=== PATIENT | male | born 1980 | race American Indian/Alaskan Native ===

== ENCOUNTER 2020-12-13 06:44 | Observation (INO) | payer MEDICAID ==
[2020-12-13] MEDS ORDERED: NITROGLYCERIN 2% OINT 1 GM TP ONE (07:09)
[2020-12-13] MEDS ORDERED: MORPHINE 4 MG/1 ML INJ IV ONE (07:09)
[2020-12-13] MEDS ORDERED: ONDANSETRON 4 MG/2 ML INJ IV ONE (07:10)
[2020-12-13] MEDS ORDERED: PANTOPRAZOLE 40 MG INJ IV ONE (07:10)
--- NOTE | 2020-12-13 07:18 | Emergency Department Report ---
ED Chest Pain HPI - General Stated Complaint: CHEST PAIN PUI?: No Time Seen by Provider: 12/13/20 07:08 Source: patient, EMS Mode of arrival: Stretcher Limitations: No Limitations - History of Present Illness Initial Comments: CC: chest pain HPI: This is a 40 yo male with hx of HTN, dyslipidemia, [place] s/p cardiac stent 06/17/2019, tobacco dependence who presents with sharp chest pain which awakened him out of sleep this morning one hour prior to arrival. 8/10 in severity. Left sided. Patient took nitroglycerin prior to arrivial without relief. EMS provided asprin and nitroglycerin. Pain is located on left side. Short. Present at rest. No sedation with eating inspiration movement or exertion. Pain feels similar to heart attack which occurred on 2018. His PCP is Dr. Ashton [facility] is located at [facility] [address] [place] There is extensive family history of cardiac disease among siblings aunts uncles and grandparents. Patient smokes cigarettes. He denies recreational drug use. MD Complaint: chest pain -: Sudden, This morning Onset: during rest, other (Awakened from sleep) Pain Location: left chest Pain Radiation: none Severity: severe Severity scale (0 -10): 8 Quality: sharp Consistency: constant Improves With: other (Minimal relief with nitroglycerin) re: denies: nausea, vomting, diaphoresis, dyspnea, sense of impending doom Other Symptoms: denies: cough, fever, syncope Treatments Prior to Arrival: aspirin, nitroglycerin - Related Data Previous Rx's Medication Instructions Recorded Last Taken Type Fluticasone [Flonase] 1 spray NS QDAY #1 bottle 05/26/18 Unknown Rx predniSONE [Deltasone] 20 mg PO DAILY #5 tablet 05/26/18 Unknown Rx Allergies Allergy/AdvReac Type Severity Reaction Status Date / Time ibuprofen [From Motrin] Allergy Nausea Verified 02/19/14 02:35 Penicillins Allergy Rash Verified 02/19/14 02:35 Heart Score - HEART Score History: Highly suspicious EKG: Non-specific Age: 45-65 Risk factors: > 3 risk factors or hx of atherosclerotic disease Troponin: < normal limit HEART Score: 6 - EKG Read Time Time EKG Completed: 07:11 EKG Read Time: 07:11 ED Review of Systems ROS: Stated complaint: CHEST PAIN Other details as noted in HPI Comment: All other systems reviewed and negative Constitutional: denies: fever, malaise Respiratory: shortness of breath. denies: cough Cardiovascular: chest pain Gastrointestinal: denies: abdominal pain, nausea, vomiting ED Past Medical Hx - Past Medical History Previous Medical History?: Yes Hx Hypertension: Yes Hx CVA: No Hx Heart Attack/AMI: Yes Hx Congestive Heart Failure: No Hx Diabetes: No Hx Deep Vein Thrombosis: No Hx Pulmonary Embolism: No Hx GERD: No Hx Liver Disease: No Hx Renal Disease: No Hx Sickle Cell Disease: No Hx Arthritis: No Hx Headaches / Migraines: No Hx Seizures: No Hx Kidney Stones: No Hx Psychiatric Treatment: No Hx Asthma: No Hx COPD: No Hx Tuberculosis: No Hx Dementia: No Hx HIV: No Additional medical history: Kidney problems - Surgical History Past Surgical History?: Yes Hx Coronary Stent: No Hx Open Heart Surgery: No Hx Pacemaker: No Hx Internal Defibrillator: No Hx Cholecystectomy: No Hx Appendectomy: No Hx Breast Surgery: No Additional Surgical History: Rt foot surgery cardiac stent - Social History Smoking Status: Current Every Day Smoker Substance Use Type: None - Medications Home Medications: Home Medications Medication Instructions Recorded Confirmed Last Taken Type Fluticasone [Flonase] 1 spray NS QDAY #1 bottle 05/26/18 Unknown Rx predniSONE [Deltasone] 20 mg PO DAILY #5 tablet 05/26/18 Unknown Rx ED Physical Exam - General Limitations: No Limitations General appearance: alert, in no apparent distress - Head Head exam: Present: atraumatic, normocephalic - Eye Eye exam: Present: normal appearance - ENT ENT exam: Present: mucous membranes moist - Neck Neck exam: Present: normal inspection, full ROM - Respiratory Respiratory exam: Present: normal lung sounds bilaterally. Absent: respiratory distress, wheezes, rales, rhonchi - Cardiovascular Cardiovascular Exam: Present: regular rate, normal rhythm, normal heart sounds. Absent: systolic murmur, diastolic murmur, rubs, gallop - GI/Abdominal GI/Abdominal exam: Present: soft, normal bowel sounds. Absent: distended, tenderness, guarding, rebound - Rectal Rectal exam: Present: deferred - Extremities Exam Extremities exam: Present: normal inspection - Back Exam Back exam: Present: normal inspection - Neurological Exam Neurological exam: Present: alert, oriented X3 - Psychiatric Psychiatric exam: Present: normal affect, normal mood - Skin Skin exam: Present: warm, dry, intact, normal color. Absent: rash ED Course Vital Signs 12/13/20 12/13/20 07:49 08:00 Pulse Rate 60 57 L Respiratory 12 Rate Blood Pressure 119/78 119/78 O2 Sat by Pulse 100 Oximetry ABDELRAHMAN score - Abdelrahman Score Age > 65: (0) No Aspirin use within the Past 7 Days: (1) Yes 3 or more CAD Risk Factors: (1) Yes 2 or more Angina events in past 24 hrs: (0) No Known CAD with more than 50% Stenosis: (1) Yes Elevated Cardiac Markers: (0) No ST Deviation Greater than 0.5mm: (0) No ABDELRAHMAN Score: 3 ED Medical Decision Making - Lab Data Result diagrams: 12/13/20 07:33 12/13/20 07:33 - EKG Data -: EKG Interpreted by Hi EKG shows normal: sinus rhythm Rate: bradycardia - EKG Data Interpretation: nonspecific ST-T wave segundo 12/13/20 07:17 EKG obtained 0 711 EKG interpreted by mt Sinus bradycardia rate 50 bpm normal axis and intervals anterior T wave inversions no ST elevation Q waves in anterior leads - Radiology Data Radiology results: report reviewed Patient Name: LIANET MEJIA Gender: Male Date of : 1980 Referring Provider: MARIELLA MOE Organization: [facility] Accession Number: [id number] Requested Date: December 13, 2020 07:08 Report Status: Final Requested Procedure: 1 Procedure Description: XR chest 1V ap Modality: XR Findings Reporting MD: Nathan Martínez Dictation Time: December 13, 2020 06:35 Hand Splitter: Not available Reproduction Technician Date: CHEST 1 VIEW 12/13/2020 7:14 AM INDICATION / CLINICAL INFORMATION: Chest Pain. COMPARISON: None available. FINDINGS: SUPPORT DEVICES: None. HEART / MEDIASTINUM: No significant abnormality. LUNGS / PLEURA: No significant pulmonary or pleural abnormality. No pneumothorax. ADDITIONAL FINDINGS: No significant additional findings. IMPRESSION: 1. No acute findings. Signer Name: Nathan Martínez MD Signed: 12/13/2020 6:35 AM Workstation Name: [id number] - Medical Decision Making Acute coronary syndrome: Heart score 6, considering multiple risk factors patient is at risk for major adverse cardiac event. However chest pain is somewhat atypical considering persistence at rest unrelenting with nitroglycerin. Pain is 4 out of 10 in spite several doses of nitroglycerin sublingual and topical. He also has received Protonix morphine. I will treat patient with Maalox and additional morphine. He appears comfortable however he states that he has persistent pain. Additional considerations GERD. D-dimer negative essentially ruling out pulmonary embolism and aortic dissection.. I consulted geomagnetician Dr. Bright who will assist with medical management And further evaluation. Patient is admitted to the hospital service in good condition - Differential Diagnosis Atypical pneumonia, pleurisy, chest wall strain, Critical care attestation.: If time is entered above; I have spent that time in minutes in the direct care of this critically ill patient, excluding procedure time. ED Disposition Clinical Impression: Acute coronary syndrome Disposition: 09 OP ADMIT IP TO THIS HOSP Is pt being admited?: Yes Does the pt Need Aspirin: No Condition: Stable
--- NOTE | 2020-12-13 07:39 | XRay Report ---
CHEST 1 VIEW 12/13/2020 7:14 AM INDICATION / CLINICAL INFORMATION: Chest Pain. COMPARISON: None available. FINDINGS: SUPPORT DEVICES: None. HEART / MEDIASTINUM: No significant abnormality. LUNGS / PLEURA: No significant pulmonary or pleural abnormality. No pneumothorax. ADDITIONAL FINDINGS: No significant additional findings. IMPRESSION: 1. No acute findings. Signer Name: Nathan Martínez MD Signed: 12/13/2020 7:35 AM Workstation Name: [id number]
[2020-12-13 07:57] LABS: Red Cell Distribution Width 13.6 % (13.2-15.2)
[2020-12-13 08:04] LABS: Eosinophils % (Auto) 3.1 % (0.0-4.3); Hemoglobin 14.2 gm/dl (11.8-15.2); Mean Corpuscular HGB Conc 35 % (32-34); Mean Corpuscular Volume 94 fl (84-94); Monocytes % (Auto) 5.9 % (0.0-7.3); Platelet Count 162 K/mm3 (140-440); Red Blood Count 4.35 M/mm3 (3.65-5.03)
[2020-12-13 08:20] LABS: BUN/Creatinine Ratio 11; Blood Urea Nitrogen 11 mg/dL (9-20); Calcium 9.3 mg/dL (8.4-10.2); Hemolysis Index 3
[2020-12-13] MEDS ORDERED: ALUM-MAG HYDROXIDE-SIMETHICONE 200-200-20MG/5ML ORAL LIQD 30 ML PO ONE (08:31)
[2020-12-13] MEDS ORDERED: NITROGLYCERIN 0.4 MG TAB SUBL SL PRN (09:22)
--- NOTE | 2020-12-13 09:22 | History and Physical Report ---
History of Present Illness Date of examination: 12/13/20 Date of admission: 12/13/20 Chief complaint: chest pain History of present illness: This is a 40 yo male with hx of HTN, dyslipidemia, [place] s/p cardiac stent 06/17/2019, tobacco dependence who presents to ER with c/o chest pain which awakened him from sleep this morning. Chest pain described as sharp 8/10 in s everity, Left sided. Patient took nitroglycerin prior to arrivial but no relief. EMS provided asprin and nitroglycerin. Pain feels similar to heart attack which occurred on 2018. Patient is being admitted for chest pain work up. Initial troponin and EKG in the ER unremarkable, CXR w/o any infiltrates. Past medical History: h/o hypertension, coronary artery disease with VA, hyperl ipidemia Past surgical History: s/p right foot surgery, cardiac stent placement with PCI Social History: Lives with family, current everyday smoker Family History: There is extensive family history of cardiac disease among siblings aunts uncles and grandparents. Review of System: Constitutional: no fever, no chills, no weight loss Ears, eyes, nose, mouth and throat: no nasal congestion, no nasal discharge, no sinus pressure, no vision change, no red eye. Neck: No neck pain or rigidity. Cardiovascular: + chest pain, no orthopnea, no palpitations, no leg swelling Respiratory: No shortness of breath, no cough, no congestion, no wheezing Gastrointestinal: no abdominal pain, no nausea, no vomiting Genitourinary : no dysuria, no hematuria Musculoskeletal: no joint swelling or muscle ache Integumentary: no rash, no pruritis Neurological: no parathesias, no numbness, no tingling Endocrine: no cold or heat intolerance, no polyuria or polydipsia Hematologic/Lymphatic: no easy bruising, no easy bleeding, no gland swelling Allergic/Immunologic: no urticaria, no angioedema. Medications and Allergies Allergies Allergy/AdvReac Type Severity Reaction Status Date / Time ibuprofen [From Motrin] Allergy Nausea Verified 02/19/14 02:35 Penicillins Allergy Rash Verified 02/19/14 02:35 Home Medications Medication Instructions Recorded Confirmed Last Taken Type Fluticasone [Flonase] 1 spray NS QDAY #1 bottle 05/26/18 12/14/20 1 Day Ago Rx ~12/13/20 Aspirin [Aspirin BABY CHEW TAB] 81 mg PO QDAY #30 tab.chew 12/14/20 Unknown Rx AtorvaSTATin [Lipitor] 40 mg PO QHS #30 tablet 12/14/20 Unknown Rx Metoprolol [Lopressor TAB] 50 mg PO BID #60 12/14/20 Unknown Rx lisinopriL [Lisinopril] 10 mg PO DAILY #30 12/14/20 Unknown Rx Exam - Physical Exam Narrative exam: GENERAL: well-developed and well-nourished male lying on bed appeared to be in no discomfort. HEENT: Normocephalic. Atraumatic. No conjunctival congestion or icterus. Patient has moist mucous membranes. NECK: Supple. Trachea midline. CHEST/LUNGS: Clear to auscultated bilaterally, breathing nonlabored. No wheezes crackles or rhonchi. HEART/CARDIOVASCULAR: Regular in rate and rhythm. S1 and S2 positive. ABDOMEN: Abdomen is soft, nontender. Patient has normal bowel sounds. SKIN: There is no rash. Warm and dry. NEURO: No focal motor deficit. Follows command. MUSCULOSKELETAL: No joint effusion or tenderness. EXTRIMITY: No edema, no cyanosis or clubbing. PSYCH: Cooperative. - Constitutional Vitals: Temp Pulse Resp BP Pulse Ox 57 L 12 119/78 100 12/13/20 08:00 12/13/20 08:00 12/13/20 08:00 12/13/20 08:00 HEART Score - HEART Score EKG: Non-specific Age: 45-65 Risk factors: > 3 risk factors or hx of atherosclerotic disease Troponin: Troponin T < 0.010 ng/mL (0.00-0.029) 12/13/20 07:33 Troponin: < normal limit Results - Labs CBC & Chem 7: 12/14/20 04:56 12/14/20 04:56 Labs: Abnormal lab results 12/13/20 12/13/20 Range/Units 07:33 07:33 MCH 33 H (28-32) pg MCHC 35 H (32-34) % Potassium 3.4 L (3.6-5.0) mmol/L - Imaging and Cardiology EKG: report reviewed Chest x-ray: report reviewed Assessment and Plan Acute chest pain -- will admit to telemetry bed - monitor with serial CE and EKG - will place on Aspirin, statin - as needed SL NTG and iv morphin for pain - Monitor BP, add betablocker and ACEI if BP tolerates - order 2D echo and stress test in the am - cardiac diet now, cardiac diet Hypertension, resume home meds History of coronary artery disease, continue aspirin statin and follow cardiology recommendation -We will also get medical record from [facility] - provide DVT Px with joceline
--- NOTE | 2020-12-13 10:39 | Consultation ---
History of Present Illness Consult date: 12/13/20 Consult reason: chest pain History of present illness: Patient is a 40-year-old man who presented to the hospital emergency room with chest pain. He describes left-sided chest pain which is positional, pleuritic and exacerbated by palpation over the left chest wall. During my examination, light to moderate palpation over the left chest wall caused reproducible pain. There was no shortness of breath, no palpitations, no lower extremity edema. His pain began this morning when he woke up from sleep. Notably, he is very physically active and reports no exercise intolerance or chest pain with exercise over the last several weeks. He reports a history of coronary artery disease, and states that a year and a half ago he underwent coronary stent placement at [facility]. However, he is currently on monotherapy with aspirin, and unable to articulate details of any dual oral antiplatelet therapy following his reported coronary procedure in May 2019. The medical records from [facility] are not currently available for review. Comorbidities include chronic tobacco abuse, patient admits to continued tobacco use. Work-up today EKG is a sinus bradycardia with limb lead malplacement on the EKG, otherwise benign EKG. In comparison with previous EKG in the chart from 2015, there are no changes. Laboratory exam reveals normal troponin levels. A CT angiogram of the chest was negative for pulmonary embolism. Current home medications include aspirin, atorvastatin, metoprolol, and sublingual nitroglycerin as needed. Past History Past Medical History: CAD, other (Tobacco abuse) Medications and Allergies Allergies Allergy/AdvReac Type Severity Reaction Status Date / Time ibuprofen [From Motrin] Allergy Nausea Verified 02/19/14 02:35 Penicillins Allergy Rash Verified 02/19/14 02:35 Home Medications Medication Instructions Recorded Confirmed Last Taken Type Fluticasone [Flonase] 1 spray NS QDAY #1 bottle 05/26/18 Unknown Rx predniSONE [Deltasone] 20 mg PO DAILY #5 tablet 05/26/18 Unknown Rx Active Meds: Active Medications Aspirin (Aspirin Ec 325 Mg Tab) 325 mg PO QDAY FRANCO Atorvastatin Calcium (Atorvastatin 40 Mg Tab) 80 mg PO QHS FRANCO Fluticasone Propionate (Fluticasone Propionate Nasal [place] 16 Gm) 50 mcg NS QDAY FRANCO Nitroglycerin (Nitroglycerin 0.4 Mg Tab Subl) 0.4 mg SL .Q5MIN PRN PRN Reason: Chest Pain Review of Systems Cardiovascular: chest pain, no orthopnea, no palpitations, no rapid/irregular heart beat, no edema, no syncope, no lightheadedness, no shortness of breath Physical Examination Vital Signs Pulse BP 60 119/78 12/13/20 07:49 12/13/20 07:49 General appearance: no acute distress HEENT: Positive: PERRL Neck: Positive: neck supple Cardiac: Positive: Reg Rate and Rhythm Lungs: Positive: Decreased Breath Sounds Neuro: Positive: Grossly Intact Abdomen: Positive: Soft Male genitourinary: Positive: deferred Skin: Positive: Clear Extremities: Absent: edema Results 12/13/20 07:33 12/13/20 07:33 CBC 12/13/20 Range/Units 07:33 WBC 5.5 (4.5-11.0) K/mm3 RBC 4.35 (3.65-5.03) M/mm3 Hgb 14.2 (11.8-15.2) gm/dl Hct 41.0 (35.5-45.6) % Plt Count 162 (140-440) K/mm3 Comprehensive Metabolic Panel 12/13/20 Range/Units 07:33 Sodium 138 (137-145) mmol/L Potassium 3.4 L (3.6-5.0) mmol/L Chloride 99.3 (98-107) mmol/L Carbon Dioxide 24 (22-30) mmol/L BUN 11 (9-20) mg/dL Creatinine 1.0 (0.8-1.3) mg/dL Glucose 96 (75-100) mg/dL Calcium 9.3 (8.4-10.2) mg/dL EKG interpretations - Telemetry EKG Rhythm: Sinus Bradycardia Assessment and Plan - Patient Problems (1) Chest pain, atypical Current Visit: Yes Status: Acute Plan to address problem: Patient's chest pain is atypical, ECG is benign and troponin level is normal. We will treat his musculoskeletal chest pain with intravenous Toradol, and continue AL rule out protocol. Due to underlying history of coronary artery disease and continued tobacco use, we will contemplate ischemic cardiac work-up prior to discharge.
[2020-12-13 11:21] LABS: Platelet Estimate Consistent w Auto; RBC Morphology Normal; Total Cells Counted 100
[2020-12-13] MEDS: KETOROLAC 30 MG/1 ML INJ IV PRN ×2 (11:43→18:51)
[2020-12-13] MEDS: ASPIRIN EC 325 MG TAB PO SCH (11:48)
[2020-12-13] MEDS: FLUTICASONE PROPIONATE NASAL SPRAY 16 GM NS SCH (13:46)
[2020-12-14] MEDS: KETOROLAC 30 MG/1 ML INJ IV PRN (04:19)
[2020-12-14 05:32] LABS: Hematocrit 38.8 % (35.5-45.6); Hemoglobin 13.5 gm/dl (11.8-15.2); Mean Corpuscular HGB Conc 35 % (32-34); Mean Corpuscular Volume 94 fl (84-94); Platelet Count 149 K/mm3 (140-440); Red Blood Count 4.12 M/mm3 (3.65-5.03); Red Cell Distribution Width 13.7 % (13.2-15.2)
[2020-12-14 05:53] LABS: BUN/Creatinine Ratio 14; Blood Urea Nitrogen 17 mg/dL (9-20); Calcium 8.6 mg/dL (8.4-10.2); Hemolysis Index 6
[2020-12-14] MEDS ORDERED: REGADENOSON 0.4 MG/5 ML INJ IV ONE (08:15)
[2020-12-14 08:51] LABS: Large Platelets Few; Platelet Estimate Consistent w Auto; RBC Morphology Normal; Total Cells Counted 100
[2020-12-14 09:43] VITALS: BP 129/87
[2020-12-14] MEDS: ASPIRIN EC 325 MG TAB PO SCH (10:53)
[2020-12-14] MEDS: FLUTICASONE PROPIONATE NASAL SPRAY 16 GM NS SCH (10:53)
--- NOTE | 2020-12-14 11:25 | Discharge Summary ---
Providers - Providers Date of Admission: 12/13/20 08:36 Date of discharge: 12/14/20 Attending physician: CAROLINA MENDEZ 12/13/20 Consult to Cardiac Rehabilitation [CONS] Routine Reason For Exam: Phase 1 12/13/20 09:22 Consult to Cardiology [CONS] Routine Consulting Provider: SELAM RICCI Reason For Exam: chest pain 12/13/20 09:34 Consult to Physician [CONS] Stat Comment: Consulting Provider: SELAM RICCI Physician Instructions: Reason For Exam: acs Primary care physician: SENIOR PARTNER Hospitalization Condition: Stable Hospital course: 40-year-old with a history of IN in the past presented to the ER with complaints of left-sided chest pain. He describes left-sided chest pain which is positional, pleuritic and exacerbated by palpation over the left chest wall. Patient was evaluated in the ER, initial cardiac enzyme and EKG was unremarkable, chest x-ray showed no infiltrates. Patient was admitted, cardiology was consulted and underwent myocardial stress test which was normal. Patient was then discharged home in stable condition with outpatient follow-up. Patient advised to follow up with his primary lumber press operator at [facility]. Disposition: DC- TO HOME OR SELFCARE Final Discharge Diagnosis (Prints w/discharge instructions): Atypical chest pain, musculoskeletal. hypokalemia, repleted Time spent for discharge: 36 minutes Core Measure Documentation - Palliative Care Palliative Care/ Comfort Measures: Not Applicable - Core Measures Any of the following diagnoses?: history only Exam - Physical Exam Narrative exam: GENERAL: well-developed and well-nourished male lying on bed appeared to be in no discomfort. HEENT: Normocephalic. Atraumatic. No conjunctival congestion or icterus. Patient has moist mucous membranes. NECK: Supple. Trachea midline. CHEST/LUNGS: Clear to auscultated bilaterally, breathing nonlabored. No wheezes crackles or rhonchi. HEART/CARDIOVASCULAR: Regular in rate and rhythm. S1 and S2 positive. ABDOMEN: Abdomen is soft, nontender. Patient has normal bowel sounds. SKIN: There is no rash. Warm and dry. NEURO: No focal motor deficit. Follows command. MUSCULOSKELETAL: No joint effusion or tenderness. EXTRIMITY: No edema, no cyanosis or clubbing. PSYCH: Cooperative. - Constitutional Vitals: Temp Pulse Resp BP Pulse Ox 97.8 F 79 18 129/87 98 12/14/20 04:06 12/14/20 04:06 12/14/20 04:06 12/14/20 09:10 12/14/20 04:06 Plan Activity: advance as tolerated Weight Bearing Status: Weight Bear as Tolerated Diet: low fat, low salt Additional Instructions: f/u with your lumber press operator in one week Follow up with: PRIMARY CARE, [Primary Care Provider] - 7 Days Prescriptions: AtorvaSTATin [Lipitor] 40 mg PO QHS #30 tablet Aspirin [Aspirin BABY CHEW TAB] 81 mg PO QDAY #30 tab.chew lisinopriL [Lisinopril] 10 mg PO DAILY #30 Metoprolol [Lopressor TAB] 50 mg PO BID #60
--- NOTE | 2020-12-14 12:03 | Progress Note ---
Assessment and Plan - Patient Problems (1) Chest pain, atypical Current Visit: Yes Status: Acute Plan to address problem: Chest pain is atypical Normal stress thallium test today. ECG is benign and troponin level is normal. Advised smoking cessation. Continue medical therapy for coronary artery disease. Okay for discharge home. Patient advised to follow up with his primary real estate acquisition analyst at [facility]. Subjective Date of service: 12/14/20 Interval history: Patient underwent a stress thallium test today that was negative for ischemia. Objective Vital Signs Temp Pulse Resp BP Pulse Ox 12/14/20 09:10 129/87 12/14/20 09:09 150/81 12/14/20 09:06 144/80 12/14/20 09:05 149/84 12/14/20 09:03 164/91 12/14/20 08:26 120/77 12/14/20 04:06 97.8 F 79 18 124/67 98 12/13/20 22:24 98 12/13/20 21:42 98.3 F 51 L 16 109/72 96 12/13/20 19:12 98.1 F 53 L 16 118/71 97 12/13/20 15:15 97.9 F 56 L 18 116/69 96 12/13/20 13:46 60 - Physical Examination General: No Apparent Distress HEENT: Positive: PERRL Neck: Positive: neck supple Cardiac: Positive: Reg Rate and Rhythm Neuro: Positive: Grossly Intact Abdomen: Positive: Soft Skin: Positive: Clear Extremities: Absent: edema - Labs and Meds CBC 12/14/20 Range/Units 04:56 WBC 5.2 (4.5-11.0) K/mm3 RBC 4.12 (3.65-5.03) M/mm3 Hgb 13.5 (11.8-15.2) gm/dl Hct 38.8 (35.5-45.6) % Plt Count 149 (140-440) K/mm3 Comprehensive Metabolic Panel 12/14/20 Range/Units 04:56 Sodium 134 L (137-145) mmol/L Potassium 3.7 (3.6-5.0) mmol/L Chloride 98.3 (98-107) mmol/L Carbon Dioxide 27 (22-30) mmol/L BUN 17 (9-20) mg/dL Creatinine 1.2 (0.8-1.3) mg/dL Glucose 97 (75-100) mg/dL Calcium 8.6 (8.4-10.2) mg/dL
[2020-12-14] MEDS ORDERED: KETOROLAC 30 MG/1 ML INJ ONE (12:27)
--- NOTE | 2020-12-14 19:21 | Electrocardiograph Report ---
[facility] Test Date: 2020-12-13 Test Time: 07:11:47 Pat Name: LIANET MEJIA Department: Room: A481 1 Gender: M Commercial Technician: GEMA CARTER : 1980 Requested By: MARIELLA MOE Order Number: [id number] Reading MD: Gloria Bright Measurements Intervals [place] Rate: 53 P: 144 VA: 167 QRS: 123 QRSD: 85 T: 129 QT: 462 QTc: 433 Interpretive Statements Right and left arm electrode reversal, interpretation assumes no reversal Sinus bradycardia Anterolateral infarct, old No previous ECG available for comparison Electronically Signed On 12-14-2020 19:21:28 EDT by Gloria Bright
[2020-12-14] MEDS ORDERED: ENOXAPARIN 40 MG/0.4 ML INJ SUB-Q SCH (22:00)
--- NOTE | 2020-12-15 14:08 | Electrocardiograph Report ---
[facility] Test Date: 2020-12-14 Test Time: 10:49:16 Pat Name: LIANET MEJIA Department: Room: A481 1 Gender: M [place] [employer] Nibs Inspector: KELLY : 1980 Requested By: CAROLINA MENDEZ Order Number: [id number] Reading MD: Gloria Bright Measurements Intervals [place] Rate: 51 P: 74 CT: 161 QRS: 58 QRSD: 91 T: 84 QT: 446 QTc: 412 Interpretive Statements Sinus rhythm Nonspecific T abnormalities, lateral leads Compared to ECG 12/13/2020 07:11:47 No significant change Electronically Signed On 12-15-2020 14:08:13 EDT by Gloria Bright
--- NOTE | 2020-12-23 13:04 | Nuclear Medicine Report ---
APPROVED REPORT Exam: Nuclear Stress Test Indication: Chest pain BMI: 0 Stress Test Details HR Resting HR: 51 bpm Max HR Achieved: 136 bpm Max Heart Rate (APMHR): 179 bpm Target HR (85% APMHR): 152 bpm % of APMHR: 75 Recovery HR: 67 bpm HR response to stress: Normal HR response to stress BP Resting BP: 120/77 mmHg Max BP: 165/92 mmHg Recovery BP: 129/87 mmHg BP response to stress: Normal blood pressure response to stress. ECG Resting ECG: Sinus Bradycardia Stress ECG: Sinus Tachycardia ST Change: None Arrhythmia: None Recovery ECG: Sinus Rhythm Recovery ST Change: None Recovery Arrhythmia: None Clinical Reason for Termination: Fatigue Stress Symptoms: None Exercise duration: 10 min 15 sec Exercise capacity: 11.0 METs Overall Exercise Capacity for Age: Good Stress ECG Conclusion No chest pain and no ST changes with exercise to 10 minutes of the Ford protocol. Myocardial perfusion images are pending for final interpretation of the test. NM EXAM: Myocardial Perfusion REST/STRESS Imaging Protocol: Rest Tc-99m/Stress Tc-99m 1 day Resting Data Rest SPECT myocardial perfusion imaging was performed in supine position 45 minutes following the intravenous injection of 10 mCi of Tc-99m Myoview. Time of rest injection: 0645 Exercise Stress At peak stress, the patient was injected intravenously with 10mCi of Tc-99m Myoview. Time of stress injection: 9:00 Gated Stress SPECT was performed 45 minutes after stress injection. Study Data TID = 1.05. Perfusion Nuclear Conclusion ECG Findings: negative for ischemia Clinical Findings: negative for ischemia Nuclear Findings: negative for ischemia Exercise Capacity: normal Left Ventricular Function: normal Risk Study: low Normal rest and stress myocardial perfusion images, normal left ventricular systolic function, ejection fraction 61%. Normal exercise thallium stress test. Conclusion No chest pain and no ST changes with exercise to 10 minutes of the Ford protocol. Myocardial perfusion images are pending for final interpretation of the test.
== END 2020-12-14 13:20 | disposition home or self-care (01) ==
LOC: ED 06:44 → 4A 08:36
PROVIDERS: ADMIT Internal Medicine; ATTEND Internal Medicine
DX: I24.9 Acute ischemic heart disease, unspecified (principal); R07.89 Other chest pain; I10 Essential (primary) hypertension; I25.10 Atherosclerotic heart disease of native coronary artery without angina pectoris; I25.2 Old myocardial infarction; E78.5 Hyperlipidemia, unspecified; F17.200 Nicotine dependence, unspecified, uncomplicated; Z79.899 Other long term (current) drug therapy; Z79.82 Long term (current) use of aspirin; Z98.890 Other specified postprocedural states; Z95.1 Presence of aortocoronary bypass graft
CPT/HCPCS: 36415; 71045; 78452; 80048; 84484; 85025; 85379; 93005; 93017; 93306; 96374; 96375; 96376; 99285; A9270; A9502; C9113; G0378; J1885; J2270; J2405; 85007

== ENCOUNTER 2022-02-20 09:25 | Emergency (ER) | payer MEDICAID ==
[2022-02-20 10:14] VITALS: BP 102/59
== END 2022-02-20 10:10 | disposition left against medical advice (07) ==
LOC: ED 09:25
DX: R11.2 Nausea with vomiting, unspecified (principal); R19.7 Diarrhea, unspecified; Z53.21 Procedure and treatment not carried out due to patient leaving prior to being seen by health care provider

== ENCOUNTER 2022-03-06 17:54 | Observation (INO) | payer MEDICAID ==
--- NOTE | 2022-03-06 19:16 | XRay Report ---
CHEST 2 VIEWS INDICATION: chest pain. COMPARISON: 12/13/2020. FINDINGS: Support devices: None. Heart: Within normal limits. Lungs/Pleura: No acute air space or interstitial disease. No significant pleural effusion. IMPRESSION: No acute findings. Signer Name: Sami Gil MD Signed: 03/06/2022 7:12 PM Workstation Name: [id number]
[2022-03-06 20:30] LABS: Basophils % (Auto) 0.7 % (0.0-1.8); Eosinophils # (Auto) 0.2 K/mm3 (0.0-0.4); Eosinophils % (Auto) 2.7 % (0.0-4.3); Hematocrit 39.4 % (35.5-45.6); Mean Corpuscular HGB Conc 36 % (32-34); Mean Corpuscular Volume 97 fl (84-94); Monocytes # (Auto) 0.3 K/mm3 (0.0-0.8); Monocytes % (Auto) 5.5 % (0.0-7.3); Platelet Count 173 K/mm3 (140-440); Red Blood Count 4.04 M/mm3 (3.65-5.03); Red Cell Distribution Width 14.2 % (13.2-15.2)
[2022-03-06 20:52] LABS: Alanine Aminotransferase 6 units/L (7-56); Albumin 4.1 g/dL (3.9-5); BUN/Creatinine Ratio 5; Blood Urea Nitrogen 7 mg/dL (9-20); Calcium 8.8 mg/dL (8.4-10.2); Hemolysis Index 5
[2022-03-07] MEDS ORDERED: hydrALAZINE 20 MG/1 ML INJ IV STA (04:30)
[2022-03-07] MEDS ORDERED: diphenhydrAMINE 50 MG/ML VIAL IV ONE (04:30)
[2022-03-07] MEDS ORDERED: PANTOPRAZOLE 40 MG INJ IV ONE (04:30)
[2022-03-07] MEDS ORDERED: NITROGLYCERIN 0.4 MG TAB SUBL SL PRN (04:30)
[2022-03-07] MEDS ORDERED: METOCLOPRAMIDE 10 MG/2 ML INJ IV ONE (04:30)
--- NOTE | 2022-03-07 04:36 | Emergency Department Report ---
ED General Adult HPI - General Chief complaint: High BP Stated complaint: HIGH BLOOD PRESSURE, DIZZY Time Seen by Provider: 03/07/22 04:29 Source: patient, family, RN notes reviewed, old records reviewed Mode of arrival: Ambulatory Limitations: No Limitations - History of Present Illness Initial comments: This is a pleasant and cooperative 41-year-old gentleman, with a history of CAD, stent, hypertension, high cholesterol, and tobacco use. He presents to the ER today with a complaint of central and left-sided chest pain, that radiates to the back and neck. This is associated with nausea, vomiting, headache, dizziness and lightheadedness and near syncope. He also reports that he felt like he was going to pass out while urinating. He denies travel, surgery, immobilization, DVT and pulmonary embolism risk factors. He denies diaphoresis. No complaint of hematemesis or bright red blood per rectum. His dizziness and lightheadedness are now resolved. -: Sudden Location: chest Radiation: back, neck Severity scale (0 -10): 3 Quality: aching Consistency: constant Improves with: rest Worsens with: other (Lightheadedness and near syncope worsened when attempting to urine) - Related Data Previous Rx's Medication Instructions Recorded Last Taken Type Fluticasone [Flonase] 1 spray NS QDAY #1 bottle 05/26/18 1 Day Ago Rx ~12/13/20 Aspirin [Aspirin BABY CHEW TAB] 81 mg PO QDAY #30 tab.chew 12/14/20 Unknown Rx AtorvaSTATin [Lipitor] 40 mg PO QHS #30 tablet 12/14/20 Unknown Rx Metoprolol [Lopressor TAB] 50 mg PO BID #60 12/14/20 Unknown Rx lisinopriL [Lisinopril] 10 mg PO DAILY #30 12/14/20 Unknown Rx Allergies Allergy/AdvReac Type Severity Reaction Status Date / Time ibuprofen [From Motrin] Allergy Nausea Verified 02/20/22 10:14 Penicillins Allergy Rash Verified 02/20/22 10:14 ED Review of Systems ROS: Stated complaint: HIGH BLOOD PRESSURE, DIZZY Other details as noted in HPI Constitutional: denies: fever Eyes: denies: eye discharge ENT: denies: epistaxis Respiratory: shortness of breath. denies: cough Cardiovascular: chest pain, syncope Gastrointestinal: nausea. denies: hematemesis, melena, hematochezia Neurological: weakness Psychiatric: anxiety Hematological/Lymphatic: denies: easy bleeding ED Past Medical Hx - Past Medical History Hx Hypertension: Yes Hx CVA: No Hx Heart Attack/AMI: Yes Hx Congestive Heart Failure: No Hx Diabetes: No Hx Deep Vein Thrombosis: No Hx Pulmonary Embolism: No Hx GERD: No Hx Liver Disease: No Hx Renal Disease: No Hx Sickle Cell Disease: No Hx Arthritis: No Hx Headaches / Migraines: No Hx Seizures: No Hx Kidney Stones: No Hx Psychiatric Treatment: No Hx Asthma: No Hx COPD: No Hx Tuberculosis: No Hx Dementia: No Hx HIV: No Additional medical history: Kidney problems - Surgical History Hx Coronary Stent: No Hx Open Heart Surgery: No Hx Pacemaker: No Hx Internal Defibrillator: No Hx Cholecystectomy: No Hx Appendectomy: No Hx Breast Surgery: No Additional Surgical History: Rt foot surgery cardiac stent - Social History Smoking Status: Current Every Day Smoker - Medications Home Medications: Home Medications Medication Instructions Recorded Confirmed Last Taken Type Fluticasone [Flonase] 1 spray NS QDAY #1 bottle 05/26/18 12/14/20 1 Day Ago Rx ~12/13/20 Aspirin [Aspirin BABY CHEW TAB] 81 mg PO QDAY #30 tab.chew 12/14/20 Unknown Rx AtorvaSTATin [Lipitor] 40 mg PO QHS #30 tablet 12/14/20 Unknown Rx Metoprolol [Lopressor TAB] 50 mg PO BID #60 12/14/20 Unknown Rx lisinopriL [Lisinopril] 10 mg PO DAILY #30 12/14/20 Unknown Rx ED Physical Exam - General Limitations: No Limitations General appearance: alert, in no apparent distress - Head Head exam: Present: atraumatic, normocephalic - Eye Eye exam: Present: normal appearance, EOMI. Absent: nystagmus - ENT ENT exam: Present: normal exam, normal orophraynx, mucous membranes moist, normal external ear exam - Neck Neck exam: Present: normal inspection, full ROM. Absent: tenderness, meningis mus - Respiratory Respiratory exam: Present: normal lung sounds bilaterally. Absent: respiratory distress, wheezes, rales, rhonchi, stridor - Cardiovascular Cardiovascular Exam: Present: normal rhythm, bradycardia, normal heart sounds. Absent: tachycardia, irregular rhythm, systolic murmur, diastolic murmur, rubs, gallop - GI/Abdominal GI/Abdominal exam: Present: soft. Absent: distended, tenderness, guarding, rebound, rigid, pulsatile mass - Rectal Rectal exam: Present: deferred - Extremities Exam Extremities exam: Present: normal inspection, full ROM, other (2+ pulses noted in the bilateral upper and lower extremities. There is no palpable cord. negative Homans sign. Muscular compartments are soft. The pelvis is stable.). Absent: pedal edema, calf tenderness - Back Exam Back exam: Present: normal inspection. Absent: tenderness, CVA tenderness (R), CVA tenderness (L), paraspinal tenderness, vertebral tenderness - Neurological Exam Neurological exam: Present: alert, oriented X3, normal gait, other (No facial droop. Tongue midline. Extraocular movements intact bilaterally. Facial sensation intact to light touch in V1, V2, V3 distribution bilaterally. 5 and a 5 strength in 4 extremities. Sensation intact to light touch in 4 extremities.). Absent: motor sensory deficit - Psychiatric Psychiatric exam: Present: anxious - Skin Skin exam: Present: warm, dry, intact, normal color. Absent: rash ED Course Vital Signs 03/06/22 03/06/22 03/07/22 18:03 23:10 03:53 Temperature 98.2 F 98.3 F 98.1 F Pulse Rate 51 L 47 L 47 L Respiratory 16 18 18 Rate Blood Pressure 187/111 171/103 Blood Pressure 192/115 [Left] O2 Sat by Pulse 100 100 100 Oximetry - Reevaluation(s) Reevaluation #1: 03/07/22 04:35 Differential diagnosis, including but not limited to: GERD, gastritis, hiatal hernia, pneumonia, costochondritis, reflux, acute coronary syndrome, orthostasis, vagal event, structural cardiac disease, hypertensive urgency, migraine headache, tension headache, cluster headache Assessment and plan: 41-year-old gentleman, who is moderate risk for major adverse cardiac event as per heart score, with reported history of presumed GERD/gastritis, with epigastric pain, nausea, rumbling and gurgling, with a left-sided and central chest pain that radiates to the back and neck, also with associated lightheadedness and near syncope, while attempting to urinate. He is not currently tachycardic, tachypneic or hypoxic, he denies DVT and pulmonary embolism risk factors, he is low risk by Wells criteria for pulmonary embolism, and he is PERC negative. The patient has equal pulses in the upper and lower extremities, no pulsatile abdominal mass, and unremarkable x-ray of the chest. Acute aortic disease is quite unlikely. He is ambulatory with a steady gait, with a GCS of 15, and no meningeal signs. Bradycardia chronic, and blood pressure slightly elevated. We will treat his symptoms with nitro, Protonix, and hydralazine. We will obtain noncontrast CT scan of the brain. Recommend admission to the medical service for acute chest pain, and hypertensive urgency. Discussed this with the patient. He is agreeable to the plan of care. 03/07/22 04:56 EKG #2 was interpreted at 4:48 AM. It is unchanged from prior EKG. Is not a STEMI. 03/07/22 05:26 CT scan brain negative for acute findings. Patient feels improved. Dr Laurie Farias to admit to [facility] ED Medical Decision Making - Lab Data Result diagrams: 03/06/22 19:48 03/06/22 19:48 Vital Signs 03/06/22 03/06/22 03/07/22 18:03 23:10 03:53 Temperature 98.2 F 98.3 F 98.1 F Pulse Rate 51 L 47 L 47 L Respiratory 16 18 18 Rate Blood Pressure 187/111 171/103 Blood Pressure 192/115 [Left] O2 Sat by Pulse 100 100 100 Oximetry Lab Results 03/06/22 03/06/22 Range/Units 19:48 19:48 WBC 5.7 (4.5-11.0) K/mm3 RBC 4.04 (3.65-5.03) M/mm3 Hgb 14.0 (11.8-15.2) gm/dl Hct 39.4 (35.5-45.6) % MCV 97 H (84-94) fl MCH 35 H (28-32) pg MCHC 36 H (32-34) % RDW 14.2 (13.2-15.2) % Plt Count 173 (140-440) K/mm3 Lymph % (Auto) 53.0 H (13.4-35.0) % Burke % (Auto) 5.5 (0.0-7.3) % Eos % (Auto) 2.7 (0.0-4.3) % Baso % (Auto) 0.7 (0.0-1.8) % Lymph # (Auto) 3.0 (1.2-5.4) K/mm3 Burke # (Auto) 0.3 (0.0-0.8) K/mm3 Eos # (Auto) 0.2 (0.0-0.4) K/mm3 Baso # (Auto) 0.0 (0.0-0.1) K/mm3 Seg Neutrophils % 38.1 L (40.0-70.0) % Seg Neutrophils # 2.2 (1.8-7.7) K/mm3 Sodium 141 (137-145) mmol/L Potassium 4.4 (3.6-5.0) mmol/L Chloride 105.9 (98-107) mmol/L Carbon Dioxide 21 L (22-30) mmol/L Anion Gap 19 mmol/L BUN 7 L (9-20) mg/dL Creatinine 1.4 H (0.8-1.3) mg/dL Estimated GFR > 60 ml/min BUN/Creatinine Ratio 5 % Glucose 88 (75-100) mg/dL Calcium 8.8 (8.4-10.2) mg/dL Total Bilirubin 0.30 (0.1-1.2) mg/dL AST 14 (5-40) units/L ALT 6 L (7-56) units/L Alkaline Phosphatase 44 (35-129) units/L Troponin T < 0.010 (0.00-0.029) ng/mL Total Protein 6.4 (6.3-8.2) g/dL Albumin 4.1 (3.9-5) g/dL Albumin/Globulin Ratio 1.8 % - EKG Data -: EKG Interpreted by Ca Rate: normal, bradycardia - EKG Data 03/07/22 04:32 The EKG is interpreted at 18: 22 Sinus bradycardia, with a rate of 48 bpm. Normal axis, normal P wave axis, poor R wave progression, QTC 4 5 7 ms. Abnormal EKG. Not a STEMI - Radiology Data Radiology results: pending, report reviewed, image reviewed CHEST 2 VIEWS INDICATION: chest pain. COMPARISON: 12/13/2020. FINDINGS: Support devices: None. Heart: Within normal limits. Lungs/Pleura: No acute air space or interstitial disease. No significant pleural effusion. IMPRESSION: No acute findings. Signer Name: Sami Gil MD Signed: 03/06/2022 6:12 PM Workstation Name: [id number] CT HEAD WITHOUT CONTRAST INDICATION / CLINICAL INFORMATION: Headache with dizziness and hypertension. TECHNIQUE: CT head was performed without admin istration of intravenous contrast. All CT scans at this location are performed using CT dose reduction for ALARA by means of automated exposure control. COMPARISON: CT head 02/19/2013. FINDINGS: CEREBRAL HEMISPHERES: There is no evidence of large territorial infarction or significant abnormality of frod- white matter differentiation. Ventricles within normal limits. No midline shift. Basal cisterns patent. HEMORRHAGE: None. CEREBELLUM / BRAINSTEM: No significant abnormality. ORBITS: No significant abnormality. SOFT TISSUES: No significant abnormality. SKULL: No significant abnormality. PARANASAL SINUSES / MASTOID AIR CELLS: Normal as visualized. ADDITIONAL FINDINGS: None. IMPRESSION: 1. No acute intracranial abnormality. Signer Name: Ramiro Ta II, MD Signed: 03/07/2022 3:53 AM Workstation Name: [id number] Critical care attestation.: If time is entered above; I have spent that time in minutes in the direct care of this critically ill patient, excluding procedure time. ED Disposition Clinical Impression: Acute chest pain, Hypertensive urgency, Headache, Near syncope Disposition: 09 ADMITTED INPATIENT Is pt being admited?: Yes Condition: Good Instructions: Chest Pain (ED) Heart Score - HEART Score History: Moderately suspicious EKG: Non-specific Age: < 45 Risk factors: > 3 risk factors or hx of atherosclerotic disease Troponin: < normal limit HEART Score: 4 - EKG Read Time Time EKG Completed: 18:22 EKG Read Time: 18:30 - Critical Actions Critical Actions: 4-6 pts:12-16.6% risk of adverse cardiac event. Should be admitted
--- NOTE | 2022-03-07 04:58 | Cat Scan Report ---
CT HEAD WITHOUT CONTRAST INDICATION / CLINICAL INFORMATION: Headache with dizziness and hypertension. TECHNIQUE: CT head was performed without administration of intravenous contrast. All CT scans at this location are performed using CT dose reduction for ALARA by means of automated exposure control. COMPARISON: CT head 02/19/2013. FINDINGS: CEREBRAL HEMISPHERES: There is no evidence of large territorial infarction or significant abnormality of ford-white matter differentiation. Ventricles within normal limits. No midline shift. Basal ciste rns patent. HEMORRHAGE: None. CEREBELLUM / BRAINSTEM: No significant abnormality. ORBITS: No significant abnormality. SOFT TISSUES: No significant abnormality. SKULL: No significant abnormality. PARANASAL SINUSES / MASTOID AIR CELLS: Normal as visualized. ADDITIONAL FINDINGS: None. IMPRESSION: 1. No acute intracranial abnormality. Signer Name: Ramiro Ta II, MD Signed: 03/07/2022 4:53 AM Workstation Name: [id number]
[2022-03-07] MEDS ORDERED: ONDANSETRON 4 MG/2 ML INJ IV PRN (05:27)
[2022-03-07] MEDS ORDERED: NALOXONE 0.4 MG/1 ML INJ IV PRN (05:27)
[2022-03-07] MEDS ORDERED: MORPHINE 2 MG/1 ML INJ IV PRN (05:27)
[2022-03-07] MEDS ORDERED: ACETAMINOPHEN 325 MG TAB PO PRN (05:27)
[2022-03-07] MEDS ORDERED: ASPIRIN 81 MG TAB CHEW PO ONE (05:33)
[2022-03-07] MEDS ORDERED: traMADol 50 MG TAB PO PRN (05:35)
[2022-03-07] MEDS ORDERED: MORPHINE 4 MG/1 ML INJ IV PRN (05:35)
[2022-03-07 05:39] LABS: INR 0.87 (0.87-1.13)
--- NOTE | 2022-03-07 05:47 | History and Physical Report ---
History of Present Illness Date of examination: 03/07/22 Date of admission: 03/07/2022 Chief complaint: Chest pain History of present illness: 41-year-old -[place] male with known history of hypertension, hyperlipidemia, tobacco abuse, coronary artery disease with stent placement in the past presenting to the emergency room today complaining of chest pain. Chest pain is said to be substernal radiating towards the left side of his chest, back and neck. On a scale of 10, pain was about 10/10 in severity. There is no known relieving or exacerbating factor. Patient had associated lightheadedness, had a near syncopal episode, nausea but no vomiting. Patient denies any fever or chills, denies any sick contacts and no recent travel. Patient denies any illicit drug use but continues to smoke tobacco on a daily basis. Patient indicates that he had a normal stress test at [facility] about 6 months ago. He has also had a stent placement about 3 years ago. Work-up in the emergency room today, chest x-ray, CT scan of the head, EKG and troponin were within normal limits. Patient will be admitted for chest pain evaluation. Past History Past Medical History: CAD, hypertension Past Surgical History: Other (Right foot surgery, cardiac stent) Social history: smoking (Current daily smoker) Family history: no significant family history Medications and Allergies Allergies Allergy/AdvReac Type Severity Reaction Status Date / Time ibuprofen [From Motrin] Allergy Nausea Verified 02/20/22 10:14 Penicillins Allergy Rash Verified 02/20/22 10:14 Home Medications Medication Instructions Recorded Confirmed Last Taken Type Fluticasone [Flonase] 1 spray NS QDAY #1 bottle 05/26/18 12/14/20 1 Day Ago Rx ~12/13/20 Aspirin [Aspirin BABY CHEW TAB] 81 mg PO QDAY #30 tab.chew 12/14/20 Unknown Rx AtorvaSTATin [Lipitor] 40 mg PO QHS #30 tablet 12/14/20 Unknown Rx Metoprolol [Lopressor TAB] 50 mg PO BID #60 12/14/20 Unknown Rx lisinopriL [Lisinopril] 10 mg PO DAILY #30 12/14/20 Unknown Rx Active Meds: Active Medications Acetaminophen (Acetaminophen 325 Mg Tab) 650 mg PO Q6H PRN PRN Reason: Pain, Mild (1-3) Aspirin (Aspirin Ec 325 Mg Tab) 325 mg PO QDAY FRANCO Heparin Sodium (Porcine) (Heparin 5,000 Unit/1 Ml Vial) 5,000 unit SUB-Q Q8HR FRANCO Morphine Sulfate (Morphine 2 Mg/1 Ml Inj) 2 mg IV Q4H PRN PRN Reason: Pain, Moderate (4-6) Morphine Sulfate (Morphine 4 Mg/1 Ml Inj) 2 mg IV Q5MIN PRN PRN Reason: Chest Pain unrelieved by NTG Naloxone HCl (Naloxone 0.4 Mg/1 Ml Inj) 0.1 mg IV Q2MIN PRN PRN Reason: Res Rate </= 8 or 02 SAT < 92% Nitroglycerin (Nitroglycerin 0.4 Mg Tab Subl) 0.4 mg SL .Q5MIN PRN PRN Reason: Chest Pain Ondansetron HCl (Ondansetron 4 Mg/2 Ml Inj) 4 mg IV Q8H PRN PRN Reason: Nausea And Vomiting Ondansetron HCl (Ondansetron 4 Mg/2 Ml Inj) 4 mg IV Q8H PRN PRN Reason: Nausea And Vomiting Sodium Chloride (Sodium Chloride 0.9% 10 Ml Flush Syringe) 10 ml IV BID FRANCO Sodium Chloride (Sodium Chloride 0.9% 10 Ml Flush Syringe) 10 ml IV PRN PRN PRN Reason: LINE FLUSH Sodium Chloride (Sodium Chloride 0.9% 10 Ml Flush Syringe) 10 ml IV BID FRANCO Sodium Chloride (Sodium Chloride 0.9% 10 Ml Flush Syringe) 10 ml IV PRN PRN PRN Reason: LINE FLUSH Tramadol HCl (Tramadol 50 Mg Tab) 50 mg PO Q6H PRN PRN Reason: Pain, Moderate (4-6) Review of Systems Constitutional: no fever, no chills Cardiovascular: chest pain, syncope, no palpitations Respiratory: no cough, no shortness of breath Gastrointestinal: nausea, no abdominal pain, no vomiting, no diarrhea Genitourinary Male: no flank pain, no nocturia Musculoskeletal: no neck pain, no low back pain Integumentary: no rash, no pruritis Neurological: headaches, no confusion Psychiatric: no anxiety, no depression Endocrine: no polyphagia, no polydipsia, no polyuria Exam - Constitutional Vitals: Temp Pulse Resp BP Pulse Ox 98.1 F 47 L 18 171/103 100 03/07/22 03:53 03/07/22 03:53 03/07/22 03:53 03/07/22 03:53 03/07/22 03:53 General appearance: Present: no acute distress, well-nourished - EENT Eyes: Present: PERRL, EOM intact. Absent: scleral icterus ENT: hearing intact, clear oral mucosa, dentition normal - Neck Neck: Present: supple, normal ROM - Respiratory Respiratory effort: normal Respiratory: bilateral: CTA - Cardiovascular Rhythm: regular Heart Sounds: Present: S1 & S2. Absent: gallop, systolic murmur, diastolic murmur, rub, click - Extremities Extremities: no ischemia, pulses intact, pulses symmetrical, No edema, normal temperature, normal color, Full ROM Peripheral Pulses: within normal limits - Abdominal General gastrointestinal: Present: soft, non-tender, non-distended, normal bowel sounds. Absent: mass - Integumentary Integumentary: Present: clear, warm, dry, normal turgor. Absent: rash - Musculoskeletal Musculoskeletal: strength equal bilaterally - Psychiatric Psychiatric: appropriate mood/affect, intact judgment & insight, memory intact, cooperative - Neurologic Neurologic: CNII-XII intact, no focal deficits, moves all extremities HEART Score - HEART Score History: Moderately suspicious EKG: Non-specific Age: < 45 Risk factors: > 3 risk factors or hx of atherosclerotic disease Troponin: Troponin T < 0.010 ng/mL (0.00-0.029) 03/06/22 19:48 Troponin: < normal limit HEART Score: 4 - Critical Actions Critical Actions: 4-6 pts:12-16.6% risk of adverse cardiac event. Should be admitted Results - Labs CBC & Chem 7: 03/06/22 19:48 03/06/22 19:48 Labs: Abnormal lab results 03/06/22 03/06/22 Range/Units 19:48 19:48 MCV 97 H (84-94) fl MCH 35 H (28-32) pg MCHC 36 H (32-34) % Lymph % (Auto) 53.0 H (13.4-35.0) % Seg Neutrophils % 38.1 L (40.0-70.0) % Carbon Dioxide 21 L (22-30) mmol/L BUN 7 L (9-20) mg/dL Creatinine 1.4 H (0.8-1.3) mg/dL ALT 6 L (7-56) units/L Assessment and Plan Assessment: 1. Chest pain 2. H/O CAD - s/p stent placement 3. Hypertensive urgency 4. Tobacco abuse Plan: 1. Patient admitted and placed on telemetry. We will check serial cardiac enzymes and monitor EKG. 2. Patient placed on daily aspirin, sublingual nitroglycerin and IV morphine as needed for chest pain. 3. Consult will be placed to cardiology for further evaluation and recomme ndation. 4. We will resume routine home medications and monitor vital signs closely. DVT prophylaxis: Subcutaneous heparin CODE STATUS: Full code
[2022-03-07] MEDS ORDERED: hydrALAZINE 20 MG/1 ML INJ IV PRN (05:52)
[2022-03-07] MEDS: HEPARIN 5,000 UNIT/1 ML VIAL SUB-Q SCH ×3 (06:08→21:19)
[2022-03-07] MEDS ORDERED: LISINOPRIL 20 MG TAB PO SCH (10:00)
[2022-03-07] MEDS ORDERED: METOPROLOL TARTRATE 25 MG TAB PO SCH (10:00)
[2022-03-07] MEDS ORDERED: LISINOPRIL 10 MG TAB PO SCH (10:00)
[2022-03-07] MEDS: ACETAMINOPHEN 325 MG TAB PO PRN ×2 (11:42→21:18)
[2022-03-07] MEDS: ONDANSETRON 4 MG/2 ML INJ IV PRN ×2 (11:49→19:47)
--- NOTE | 2022-03-07 14:47 | Consultation ---
History of Present Illness Consult date: 03/07/22 Consult reason: chest pain History of present illness: The patient is a 41-year-old man with chronic hypertension, who presented to the hospital with primary symptoms of dizziness, headache and uncontrolled hypertension. He is home blood pressure medicines include lisinopril he states that because of persistently high blood pressures he took an extra dose to no avail. He finally presented to the emergency room where his systolic blood pres sure has ranged from 190s-200s. Cardiology consultation was requested. The patient has no chest pain, no unusual shortness of breath, no palpitations, no lower extremity edema. He has a history of coronary artery disease, 3 years ago at [facility] he underwent implantation of a drug-eluting stent to the right coronary artery. More recently, last year he was in this hospital and underwent an exercise thallium stress test during which he exercised for 10 minutes of a Ford protocol, the test was normal. Serial echocardiograms have documented normal left ventricular systolic function, ejection fraction 60%. On this presentation, his ECG was a sinus bradycardia in the mid to high 40s, otherwise normal ECG with no ST or T wave abnormalities. It is notable that his home meds included metoprolol, which has been continued on this hospitalization despite persistent bradycardia in the mid 40s. Past History Past Medical History: CAD, hypertension Past Surgical History: PTCA Social history: smoking (Current daily smoker) Family history: no significant family history Medications and Allergies Allergies Allergy/AdvReac Type Severity Reaction Status Date / Time ibuprofen [From Motrin] Allergy Nausea Verified 02/20/22 10:14 Penicillins Allergy Rash Verified 02/20/22 10:14 Home Medications Medication Instructions Recorded Confirmed Last Taken Type Fluticasone [Flonase] 1 spray NS QDAY #1 bottle 05/26/18 12/14/20 1 Day Ago Rx ~12/13/20 Aspirin [Aspirin BABY CHEW TAB] 81 mg PO QDAY #30 tab.chew 12/14/20 Unknown Rx AtorvaSTATin [Lipitor] 40 mg PO QHS #30 tablet 12/14/20 Unknown Rx Metoprolol [Lopressor TAB] 50 mg PO BID #60 12/14/20 Unknown Rx lisinopriL [Lisinopril] 10 mg PO DAILY #30 12/14/20 Unknown Rx Active Meds: Active Medications Acetaminophen (Acetaminophen 325 Mg Tab) 650 mg PO Q6H PRN PRN Reason: Pain, Mild (1-3) Last Admin: 03/07/22 11:42 Dose: 650 mg Aspirin (Aspirin Ec 325 Mg Tab) 325 mg PO QDAY [facility] Atorvastatin Calcium (Atorvastatin 40 Mg Tab) 40 mg PO QHS [facility] Heparin Sodium (Porcine) (Heparin 5,000 Unit/1 Ml Vial) 5,000 unit SUB-Q Q8HR [facility] Last Admin: 03/07/22 14:26 Dose: 5,000 unit Hydralazine HCl (Hydralazine 20 Mg/1 Ml Inj) 10 mg IV Q4HR PRN PRN Reason: Blood Pressure Lisinopril (Lisinopril 10 Mg Tab) 10 mg PO QDAY [facility] Last Admin: 03/07/22 09:16 Dose: 10 mg Metoprolol Tartrate (Metoprolol Tartrate 25 Mg Tab) 50 mg PO BID [facility] Last Admin: 03/07/22 09:16 Dose: 50 mg Morphine Sulfate (Morphine 2 Mg/1 Ml Inj) 2 mg IV Q4H PRN PRN Reason: Pain, Moderate (4-6) Morphine Sulfate (Morphine 4 Mg/1 Ml Inj) 2 mg IV Q5MIN PRN PRN Reason: Chest Pain unrelieved by NTG Naloxone HCl (Naloxone 0.4 Mg/1 Ml Inj) 0.1 mg IV Q2MIN PRN PRN Reason: Res Rate </= 8 or 02 SAT < 92% Nitroglycerin (Nitroglycerin 0.4 Mg Tab Subl) 0.4 mg SL .Q5MIN PRN PRN Reason: Chest Pain Last Admin: 03/07/22 05:43 Dose: 0.4 mg Ondansetron HCl (Ondansetron 4 Mg/2 Ml Inj) 4 mg IV Q8H PRN PRN Reason: Nausea And Vomiting Last Admin: 03/07/22 11:49 Dose: 4 mg Sodium Chloride (Sodium Chloride 0.9% 10 Ml Flush Syringe) 10 ml IV BID [facility] Last Admin: 03/07/22 09:16 Dose: 10 ml Sodium Chloride (Sodium Chloride 0.9% 10 Ml Flush Syringe) 10 ml IV PRN PRN PRN Reason: LINE FLUSH Tramadol HCl (Tramadol 50 Mg Tab) 50 mg PO Q6H PRN PRN Reason: Pain, Moderate (4-6) Review of Systems Cardiovascular: lightheadedness, no chest pain, no orthopnea, no palpitations, no rapid/irregular heart beat, no edema, no syncope, no shortness of breath Physical Examination Vital Signs Temp Pulse Resp BP Pulse Ox 98.2 F 51 L 16 192/115 100 03/06/22 18:03 03/06/22 18:03 03/06/22 18:03 03/06/22 18:03 03/06/22 18:03 General appearance: no acute distress HEENT: Positive: PERRL Neck: Positive: neck supple Cardiac: Positive: Regular Rhythm Lungs: Positive: clear to auscultation Neuro: Positive: Grossly Intact Abdomen: Positive: Soft Male genitourinary: Positive: deferred Skin: Positive: Clear Extremities: Absent: edema Results 03/06/22 19:48 03/06/22 19:48 Cardiac Enzymes 03/06/22 Range/Units 19:48 AST 14 (5-40) units/L Coagulation 03/07/22 Range/Units 05:13 PT 13.0 (12.2-14.9) Sec. INR 0.87 (0.87-1.13) CBC 03/06/22 Range/Units 19:48 WBC 5.7 (4.5-11.0) K/mm3 RBC 4.04 (3.65-5.03) M/mm3 Hgb 14.0 (11.8-15.2) gm/dl Hct 39.4 (35.5-45.6) % Plt Count 173 (140-440) K/mm3 Lymph # (Auto) 3.0 (1.2-5.4) K/mm3 [place] # (Auto) 0.3 (0.0-0.8) K/mm3 Eos # (Auto) 0.2 (0.0-0.4) K/mm3 Baso # (Auto) 0.0 (0.0-0.1) K/mm3 Comprehensive Metabolic Panel 03/06/22 Range/Units 19:48 Sodium 141 (137-145) mmol/L Potassium 4.4 (3.6-5.0) mmol/L Chloride 105.9 (98-107) mmol/L Carbon Dioxide 21 L (22-30) mmol/L BUN 7 L (9-20) mg/dL Creatinine 1.4 H (0.8-1.3) mg/dL Glucose 88 (75-100) mg/dL Calcium 8.8 (8.4-10.2) mg/dL AST 14 (5-40) units/L ALT 6 L (7-56) units/L Alkaline Phosphatase 44 (35-129) units/L Total Protein 6.4 (6.3-8.2) g/dL Albumin 4.1 (3.9-5) g/dL EKG interpretations - Telemetry EKG Rhythm: Sinus Bradycardia (Heart rate mid to high 40s, otherwise normal ECG) Assessment and Plan - Patient Problems (1) Uncontrolled hypertension Current Visit: Yes Status: Acute Plan to address problem: Patient presents with symptoms of uncontrolled hypertension, which he expressed while he was at home and attempted to control with additional medications. At t his time his blood pressure remains persistently elevated. I will increase lisinopril, and add Procardia XL 60 mg daily for optimal control of this patient's blood pressure. Following optimal control, he may be discharged home on the same regimen. (2) Bradycardia Current Visit: Yes Status: Acute Plan to address problem: Patient has a persistent sinus bradycardia in the mid to high 40s, but his metoprolol has been continued during this time. I will immediately discontinue metoprolol and also order a thyroid stimulating hormone level. (3) Coronary artery disease Current Visit: Yes Status: Acute Plan to address problem: Patient has coronary artery disease status post coronary stent placement to the obtuse marginal 3 years ago, followed by normal exercise thallium stress test last year. He has no symptoms of cardiac ischemia at this time, we will optimize guideline directed medical therapy and continue conservative outpatient follow-up of his coronary disease.
[2022-03-07] MEDS: NIFEdipine XL 60 MG TAB PO SCH (15:50)
[2022-03-07] MEDS: LISINOPRIL 40 MG TAB PO SCH (15:50)
--- NOTE | 2022-03-07 17:38 | Event Note ---
Date: 03/07/22 Patient 41-year-old with a history of hypertension hyperlipidemia coronary artery disease status post stent placement presented with chest pain radiating to left side and neck. Current work-up negative EKG unremarkable troponin unremarkable. Patient had negative stress test 6 months ago. Also complains of episode of near syncope. Currently hemodynamically stable no symptoms at present being worked up for chest pain rule out [place].
[2022-03-08] MEDS: ONDANSETRON 4 MG/2 ML INJ IV PRN (04:13)
[2022-03-08] MEDS ORDERED: HYDROmorphone 1 MG/1 ML INJ IV ONE (04:22)
[2022-03-08 05:51] LABS: Basophils % (Auto) 0.6 % (0.0-1.8); Eosinophils # (Auto) 0.1 K/mm3 (0.0-0.4); Eosinophils % (Auto) 1.2 % (0.0-4.3); Hematocrit 47.2 % (35.5-45.6); Hemoglobin 16.1 gm/dl (11.8-15.2); Lymphocytes % (Auto) 30.8 % (13.4-35.0); Mean Corpuscular HGB Conc 34 % (32-34); Mean Corpuscular Volume 98 fl (84-94); Monocytes # (Auto) 0.3 K/mm3 (0.0-0.8); Monocytes % (Auto) 5.2 % (0.0-7.3); Platelet Count 171 K/mm3 (140-440); Red Cell Distribution Width 14.1 % (13.2-15.2)
[2022-03-08 06:00] LABS: BUN/Creatinine Ratio 7; Blood Urea Nitrogen 8 mg/dL (9-20); Calcium 9.6 mg/dL (8.4-10.2); Hemolysis Index 25
[2022-03-08] MEDS: HEPARIN 5,000 UNIT/1 ML VIAL SUB-Q SCH (06:10)
--- NOTE | 2022-03-08 09:29 | Discharge Summary ---
Providers - Providers Date of Admission: 03/07/22 05:27 Date of discharge: 03/08/22 Attending physician: GABO HORTA 03/07/22 Consult to Cardiac Rehabilitation [CONS] Routine Reason For Exam: Phase I 03/07/22 05:35 Consult to Cardiology [CONS] Routine Consulting Provider: SOMMER MEDINA Reason For Exam: Chest pain Primary care physician: TANNER TYLER Hospitalization Condition: Good Hospital course: Patient 41-year-old with a history of hypertension hyperlipidemia coronary artery disease status post stent placement presented with chest pain radiating to left side and neck. On admission work-up negative with the exception of EKG revealing sinus bradycardia in the mid to high 40s and troponin unremarkable. Patient had negative stress test 6 months ago. Also complains of episode of near syncope. Patient reportedly also have persistently elevated systolic blood pressures. Cardiology evaluated the patient and reported no chest pain or unusual shortness of breath. Cardiology increased lisinopril and added Procardia with optimal control of blood pressure. Metoprolol was discontinued and bradycardia resolved which was likely the etiology of syncope. The patient reportedly had no symptoms of cardiac ischemia per cardiology. Therefore cardiology recommends to continue conservative treatment and outpatient follow- up for his coronary disease. Dedicated discharge time 32 minutes Disposition: 01 HOME / SELF CARE / HOMELESS Final Discharge Diagnosis (Prints w/discharge instructions): Uncontrolled hypertension, bradycardia, coronary artery disease, syncope Core Measure Documentation - Palliative Care Palliative Care/ Comfort Measures: Not Applicable - Core Measures Any of the following diagnoses?: none Exam - Constitutional Vitals: Temp Pulse Resp BP Pulse Ox 97.8 F 81 18 141/97 100 03/08/22 07:12 03/08/22 07:12 03/08/22 07:12 03/08/22 07:12 03/08/22 07:12 General appearance: Present: no acute distress, well-nourished - EENT Eyes: Present: PERRL ENT: hearing intact, clear oral mucosa - Neck Neck: Present: supple, normal ROM - Respiratory Respiratory effort: normal Respiratory: bilateral: CTA - Cardiovascular Heart Sounds: Present: S1 & S2. Absent: rub, click - Extremities Extremities: pulses symmetrical, No edema Peripheral Pulses: within normal limits - Abdominal General gastrointestinal: Present: soft, non-tender, non-distended, normal bowel sounds Male genitourinary: Present: normal - Integumentary Integumentary: Present: clear, warm, dry - Musculoskeletal Musculoskeletal: gait normal, strength equal bilaterally - Psychiatric Psychiatric: appropriate mood/affect, intact judgment & insight - Neurologic Neurologic: CNII-XII intact, moves all extremities Plan Activity: advance as tolerated Weight Bearing Status: Weight Bear as Tolerated Diet: low fat, low cholesterol, low salt Follow up with: TANNER TYLER MD [Primary Care Provider] - 7 Days SELAM RICCI MD [Staff Physician] - 7 Days Prescriptions: AtorvaSTATin [Lipitor] 40 mg PO QHS #30 tablet NIFEdipine XL [Procardia Xl] 60 mg PO QDAY #30 tablet lisinopriL [Zestril TAB] 40 mg PO QDAY #30 tablet
[2022-03-08] MEDS: NIFEdipine XL 60 MG TAB PO SCH (09:33)
[2022-03-08] MEDS: LISINOPRIL 40 MG TAB PO SCH (09:33)
[2022-03-08] MEDS ORDERED: ASPIRIN EC 325 MG TAB PO SCH (10:00)
[2022-03-08 11:56] VITALS: BP 130/100
--- NOTE | 2022-03-08 11:59 | Progress Note ---
Assessment and Plan - Patient Problems (1) Uncontrolled hypertension Current Visit: Yes Status: Acute Plan to address problem: Patient presents with symptoms of uncontrolled hypertension, which he expressed while he was at home and attempted to control with additional medications. Blood pressure control is much better with the addition of Procardia XL. Stable for cardiac discharge on Procardia XL 60 mg twice daily. (2) Bradycardia Current Visit: Yes Status: Acute Plan to address problem: Patient had bradycardia on metoprolol, this medicine can be resumed at much lower doses of 12.5 mg twice daily. (3) Coronary artery disease Current Visit: Yes Status: Acute Plan to address problem: Patient has coronary artery disease status post coronary stent placement to the obtuse marginal 3 years ago, followed by normal exercise thallium stress test last year. He has no symptoms of cardiac ischemia at this time, we will optimize guideline directed medical therapy and continue conservative outpatient follow-up of his coronary disease. Subjective Date of service: 03/08/22 Principal diagnosis: Uncontrolled hypertension Interval history: Patient presented with symptoms of severe, uncontrolled hypertension. He looks and feels better, after blood pressure control has been optimized with the addition of Procardia XL 60 mg twice daily. In addition, his bradycardia has resolved after stoppage of metoprolol. Objective Vital Signs Temp Pulse Resp BP Pulse Ox 03/08/22 07:12 97.8 F 81 18 141/97 100 03/08/22 04:21 95 H 03/08/22 04:15 97.8 F 03/08/22 04:14 141/97 03/08/22 01:00 20 98 03/08/22 00:52 65 03/08/22 00:16 98.4 F 67 19 138/83 100 03/07/22 22:50 63 174/99 03/07/22 22:02 97.8 F 63 18 174/99 99 03/07/22 20:41 54 L 03/07/22 13:29 20 98 - Physical Examination General: Appears Well, No Apparent Distress HEENT: Positive: PERRL Neck: Positive: neck supple Cardiac: Positive: Reg Rate and Rhythm Lungs: Positive: clear to auscultation Neuro: Positive: Grossly Intact Abdomen: Positive: Soft Skin: Positive: Clear Extremities: Absent: edema - Labs and Meds CBC 03/08/22 Range/Units 05:03 WBC 6.4 (4.5-11.0) K/mm3 RBC 4.80 (3.65-5.03) M/mm3 Hgb 16.1 H (11.8-15.2) gm/dl Hct 47.2 H D (35.5-45.6) % Plt Count 171 (140-440) K/mm3 Lymph # (Auto) 2.0 (1.2-5.4) K/mm3 [place] # (Auto) 0.3 (0.0-0.8) K/mm3 Eos # (Auto) 0.1 (0.0-0.4) K/mm3 Baso # (Auto) 0.0 (0.0-0.1) K/mm3 Comprehensive Metabolic Panel 03/08/22 Range/Units 05:03 Sodium 139 (137-145) mmol/L Potassium 3.7 (3.6-5.0) mmol/L Chloride 100.4 (98-107) mmol/L Carbon Dioxide 23 (22-30) mmol/L BUN 8 L (9-20) mg/dL Creatinine 1.2 (0.8-1.3) mg/dL Glucose 109 H (75-100) mg/dL Calcium 9.6 (8.4-10.2) mg/dL
--- NOTE | 2022-03-08 17:23 | Electrocardiograph Report ---
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
--- NOTE | 2022-03-08 17:30 | Electrocardiograph Report ---
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
--- NOTE | 2022-03-08 17:34 | Electrocardiograph Report ---
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
== END 2022-03-08 12:05 | disposition home or self-care (01) ==
LOC: ED 17:54 → 4A 03-07 05:27
PROVIDERS: ADMIT Internal Medicine Geriatric Medicine; ATTEND Hospitalist
DX: R07.89 Other chest pain (principal); I16.0 Hypertensive urgency; I25.10 Atherosclerotic heart disease of native coronary artery without angina pectoris; I10 Essential (primary) hypertension; E78.00 Pure hypercholesterolemia, unspecified; R51.9 Headache, unspecified; R55 Syncope and collapse; R00.1 Bradycardia, unspecified; F17.210 Nicotine dependence, cigarettes, uncomplicated; Z95.1 Presence of aortocoronary bypass graft; Z79.82 Long term (current) use of aspirin; Z79.899 Other long term (current) drug therapy; Z98.890 Other specified postprocedural states
CPT/HCPCS: 36415; 70450; 71046; 80048; 80053; 82550; 83735; 84484; 85025; 85610; 93005; 96372; 96374; 96375; 96376; 99285; 99406; C8929; C9113; G0378; J0360; J1170; J1200; J1644; J2270; J2405; J2765; 93306